=== PATIENT | female | born 1960 | race Caucasian/White ===

== ENCOUNTER → 2019-11-08 10:31 | Outpatient (CLI) | payer OTHER, SELFPAY ==
--- NOTE | ~2019-11-08 | MM_ITS ---
EXAMINATION: MM screening [facility] BI w link HISTORY: Screening mammogram TECHNIQUE: Craniocaudal and mediolateral oblique 3-D tomosynthesis images were obtained and synthetic 2-D images were generated. CAD analysis was submitted and interpreted. COMPARISON: 08/10/2018, 08/04/2017, 07/18/2016 BREAST PARENCHYMAL COMPOSITION: The breasts are heterogeneously dense, which may obscure small masses . FINDINGS: Scattered benign-appearing calcifications are present. A stable mass in the outer left [address] st is considered benign given the lack of interval change. Also seen is a stable asymmetry in the pos terior third of the outer right breast on the craniocaudal view. There is no evidence of suspicious m ass, calcification, or architectural distortion to suggest malignancy in either breast. There has bee n no suspicious interval change. IMPRESSION: 1. No mammographic evidence of malignancy. 2. Recommend routine screening mammography in one year. BI-RADS Category 2: Benign finding(s). Reviewed, dictated and finalized at location A.
== END ==
PROVIDERS: Visit Provider Obstetrics & Gynecology
DX: Z12.31 Encounter for screening mammogram for malignant neoplasm of breast (principal)
CPT/HCPCS: 77063; 77067

== ENCOUNTER → 2020-09-23 03:01 | Outpatient (CLI) | payer OTHER, SELFPAY ==
[2020-09-23 19:46] LABS: SARS-CoV-2 RNA PCR Negative
== END ==
PROVIDERS: PCP Family Medicine; Visit Provider Internal Medicine Gastroenterology
DX: Z01.812 Encounter for preprocedural laboratory examination (principal); Z20.822 Contact with and (suspected) exposure to COVID-19
CPT/HCPCS: C9803; U0003; U0005

== ENCOUNTER 2020-09-26 00:21 | Day surgery (SDC) | payer OTHER, SELFPAY ==
[2020-09-13 14:02] VITALS: BMI 32.0
[2020-09-26 07:45] VITALS: BP 143/83; PULSE 108; RESP 15; TEMP 37.1; O2SAT 98; BMI 31.8
[2020-09-26] MEDS: LACTATED RINGERS 1,000 ML 150 ML IV CONT (07:52)
--- NOTE | 2020-09-26 08:12 | P.PNAN_ITS ---
Anes - Initial Pre Proc Eval Procedure: Operation Date: 09/26/20 08:30 Proposed Procedures p Esophagogastroduodenoscopy And Screening Colonoscopy - Matteo Hebert MD Date/Time: 09/26/20 08:12 Surgeon: Matteo Dee MD Pre Op Diagnosis: neoplasm screening, GERD Patient Data Age: 59 Gender: F Height: 5 ft 3 in Weight: 81.5 kg Last Vital Signs Temp 98.7 F 09/26/20 07:45 Pulse 108 H 09/26/20 07:45 Resp 15 09/26/20 07:45 BP 143/83 H 09/26/20 07:45 Pulse Ox 98 09/26/20 07:45 Allergies Allergy/AdvReac Type Severity Reaction Status Date / Time codeine Allergy Mild Unknown Verified 09/26/20 07:44 methylprednisolone Allergy Mild Other Verified 09/26/20 07:44 Quinolones Allergy Mild Unknown Verified 09/26/20 07:44 erythromycin base Allergy Unknown Hives Verified 09/26/20 07:44 levofloxacin Allergy Unknown Unknown Verified 09/26/20 07:44 lisinopril Allergy Unknown Pruritic Verified 09/26/20 07:44 rash Sulfa (Sulfonamide Allergy Unknown Unknown Verified 09/26/20 07:44 Antibiotics) Home Medications Medication Instructions Recorded Confirmed Type ergocalciferol (vitamin D2) 1,250 50,000 unit PO .every other week 04/17/20 09/26/20 Rx mcg (50,000 unit) capsule #12 cap esomeprazole magnesium 20 mg 20 mg PO DAILY 08/07/20 09/26/20 History capsule,delayed release amlodipine 5 mg tablet 5 mg PO DAILY #90 tablet 09/14/20 09/26/20 Rx Patient hx anesthesia problems: none Family hx anesthesia problems: none PMFSH Past Medical History Medical History (Updated 10/18/19 @ 09:02 by Ana Varma, HEIDY) HLD (hyperlipidemia) Wellness examination Surgical History Surgical History (Updated 10/18/19 @ 09:29 by Ana Varma, HEIDY) S/P cervical spinal fusion Family History Family History Mother Family history of malignant neoplasm of ovary Patient's mother is Sibling Patient's sister is in good health Patient's brother is in good health Social History Social History (Updated 08/07/20 @ 08:39 by Sydni Hearn) Smoking status: Never smoker Second hand tobacco smoke exposure: No Alcohol intake: never Substance use: never Substance use type: does not use Living arrangements: with family Gender identity (if verbalized by the patient): Female Anes - Eval Final PreProcedure Day of Procedure 09/26/20 08:12 Patient weight: overweight Heart: regular rate and rhythm Lungs: clear to auscultation Airway: Mallampati scale class II Neurological: alert and oriented Last oral intake: >/= 8 hours ASA classification: II Emergent: no Anesthetic plan: proceed Anesthesia type and monitoring: general GIVS and standard monitoring Informed Consent: The patient's anesthetic plan and its attendant risks and benefits were discussed with the patient/family/POA. Questions were solicited and answers provided to the satisfaction of the patient/family/POA.
--- NOTE | 2020-09-26 08:18 | PM.HPGS ---
History of Present Illness History of Present Illness Consent: Risks, benefits, and alternatives have been discussed and questions answered. Patient agrees to proceed with procedure. Chief complaint: neoplasm screening, GERD Narrative: Rosita Bustamante is a 59 year old female with gerd on nexium for years but also using tums 2-3 times a week, last colonoscopy 10 years ago. Review of Systems Constitutional: Constitutional: Denies headache(s) and Denies weakness Eyes: Eyes: Denies blurry vision ENT: Reports Normal hearing present, Denies headache(s) and Denies neck pain Cardiovascular: Cardiovascular: Denies chest pain and Denies dyspnea Respiratory: Respiratory: Denies dyspnea Gastrointestinal: Gastrointestinal: Reports no additional gastrointestinal complaints Genitourinary: Genitourinary: Denies dysuria Musculoskeletal: Musculoskeletal: Denies neck pain Integumentary/Breasts: Skin/Breast: Denies dry skin Neurologic: Reports Normal hearing present, Denies headache(s) and Denies weakness Psychiatric: Psychiatric: Denies anxiety Endocrine: Endocrine: Denies change in body appearance Hematologic/Lymphatic: Hematologic/Lymphatic: Denies easy bleeding Allergic/Immunologic: Allergic/Immunologic: Denies urticaria PMFSH Past Medical History Medical History (Updated 09/26/20 @ 08:19 by Matteo Dee MD) Colon cancer screening HLD (hyperlipidemia) Wellness examination Surgical History Surgical History (Updated 10/18/19 @ 09:29 by Ana Varma, HEIDY) S/P cervical spinal fusion Family History Family History Mother Family history of malignant neoplasm of ovary Patient's mother is Sibling Patient's sister is in good health Patient's brother is in good health Social History Social History (Updated 08/07/20 @ 08:39 by Sydni Hearn) Smoking status: Never smoker Second hand tobacco smoke exposure: No Alcohol intake: never Substance use: never Substance use type: does not use Living arrangements: with family Gender identity (if verbalized by the patient): Female Meds Home Medications and Allergies Home Medications Medication Instructions Recorded Confirmed Type ergocalciferol (vitamin D2) 1,250 50,000 unit PO .every other week 12/21/20 06/01/21 Rx mcg (50,000 unit) capsule #12 cap esomeprazole magnesium 20 mg 20 mg PO DAILY 08/07/20 09/26/20 History capsule,delayed release amlodipine 5 mg tablet 5 mg PO DAILY #90 tablet 09/14/20 09/26/20 Rx Allergies Allergy/AdvReac Type Severity Reaction Status Date / Time codeine Allergy Mild Unknown Verified 09/26/20 07:44 methylprednisolone Allergy Mild Other Verified 09/26/20 07:44 Quinolones Allergy Mild Unknown Verified 09/26/20 07:44 erythromycin base Allergy Unknown Hives Verified 09/26/20 07:44 levofloxacin Allergy Unknown Unknown Verified 09/26/20 07:44 lisinopril Allergy Unknown Pruritic Verified 09/26/20 07:44 rash Sulfa (Sulfonamide Allergy Unknown Unknown Verified 09/26/20 07:44 Antibiotics) Vital Signs Vital Signs - 24 hr 09/26/20 07:45 Temperature 98.7 F Pulse Rate 108 H Respiratory Rate 15 Blood Pressure 143/83 H Pulse Oximetry 98 Exam Const: General: comfortable and no acute distress HENMT: General nose exam: Normal nares present Eyes: General: appearance normal, both eyes and all related structures Neck: Neck: no JVD Resp: Auscultation: clear to auscultation bilaterally Cardio: Rate: regular rate Rhythm: regular rhythm GI: Inspection: non-distended GI Palp: Yes Soft to palpation Skin: General skin exam: normal color Neuro: General: gait normal Speech: normal speech Extrem: General: normal to inspection Psych: Mental Status: mental status grossly normal Assessment and Plan Assessment and plan (1) Chronic GERD: Code(s): K21.9 - Gastro-esophageal refl
[2020-09-26] MEDS: BENZOCAINE (*SP) 60 ML SPRAY CAN (HURRICAINE) 1 SPRAY MUCOUS MEM (08:25)
[2020-09-26 08:53] VITALS: BP 83/47; PULSE 92; RESP 16; O2SAT 98
[2020-09-26 09:03] VITALS: BP 91/56; PULSE 91; RESP 18; O2SAT 98
[2020-09-26 09:13] VITALS: BP 92/60; PULSE 93; RESP 17; O2SAT 98
== END 2020-09-26 09:25 | disposition home or self-care (01) ==
PROVIDERS: PCP Family Medicine; Visit Provider Internal Medicine Gastroenterology
PROC: 0DJ08ZZ Inspection of Upper Intestinal Tract, Via Natural or Artificial Opening Endoscopic (ICD-10-PCS; CPT 43235; principal; 2020-09-26 08:30)
DX: Z12.11 Encounter for screening for malignant neoplasm of colon (principal); K64.8 Other hemorrhoids; K21.9 Gastro-esophageal reflux disease without esophagitis; E78.5 Hyperlipidemia, unspecified
CPT/HCPCS: 45378; 43239; 88305; C9803; J2704; J7120; U0003; U0005

== ENCOUNTER → 2020-11-24 12:13 | Outpatient (CLI) | payer OTHER, SELFPAY ==
--- NOTE | ~2020-11-24 | MM_ITS ---
EXAMINATION: MM screening [facility] BI w link HISTORY: Screening mammogram TECHNIQUE: Craniocaudal and mediolateral oblique 3-D tomosynthesis images were obtained and synthetic 2-D images were generated. CAD analysis was submitted and interpreted. COMPARISON: 11/08/2019, 08/08/2018, 08/14/2017 bilateral digital screening mammogram examinations 3 BREAST PARENCHYMAL COMPOSITION: The breasts are heterogeneously dense, which may obscure small masses . FINDINGS: Occasional benign calcifications. There is no evidence of suspicious mass, calcification, o r architectural distortion to suggest malignancy in either breast. There has been no suspicious inter lizzie change. IMPRESSION: 1. No mammographic evidence of malignancy. 2. Recommend routine screening mammography in one year. BI-RADS Category 2: Benign finding(s). Reviewed, dictated and finalized at location A.
== END ==
PROVIDERS: Visit Provider Obstetrics & Gynecology
DX: Z12.31 Encounter for screening mammogram for malignant neoplasm of breast (principal)
CPT/HCPCS: 77063; 77067

== ENCOUNTER → 2022-01-15 10:05 | Outpatient (CLI) | payer OTHER, SELFPAY ==
--- NOTE | ~2022-01-15 | MM_ITS ---
EXAMINATION: MM screening [facility] BI w link HISTORY: Screening mammogram TECHNIQUE: Craniocaudal and mediolateral oblique 3-D tomosynthesis images were obtained and synthetic 2-D images were generated. CAD analysis was submitted and interpreted. COMPARISON: 11/24/2020, 11/08/2019, 08/10/2018 BREAST PARENCHYMAL COMPOSITION: The breasts are heterogeneously dense, which may obscure small masses . FINDINGS: There is no suspicious mass, calcification, or architectural distortion to suggest malignan cy in either breast. There has been no suspicious interval change. IMPRESSION: 1. No mammographic evidence of malignancy. 2. Recommend routine screening mammography in one year. BI-RADS Category 1: Negative Reviewed, dictated and finalized at location A.
--- NOTE | ~2022-01-15 | DEXA_ITS ---
Bone Density Report Name: MIRI VARGAS Age: 61 Sex: Female Ethnicity: White Date of : 1960 Indication: postmenopausal; screening for osteoporosis; hysterectomy; Referring Provider: NOLAN FENG Study: Bone densitometry was performed. Exam Date: January 15, 2022 Accession number: [id number] Bone Density: Region BMD T-score Z-score Classification AP Spine (L1-L4) 1.234 1.7 3.2 Normal Femoral Neck (Left) 0.937 0.8 2.1 Normal Total Hip (Left) 1.028 0.7 1.7 Normal Femoral Neck (Right) 0.919 0.6 2.0 Normal Total Hip (Right) 1.028 0.7 1.7 Normal Total Hip Mean 1.028 0.7 1.7 Normal World Health Organization criteria for BMD impression classify patients as: Normal (T-score at or above -1.0), Osteopenia (T-score between -1.0 and -2.5), or Osteoporosis (T-score at or below -2.5). 10-year Fracture Risk: FRAX not reported because: All T-scores for Spine Total, Hip Total, Femoral Neck at or above -1.0 Previous Exams: Region Exam Age BMD T-score BMD Change BMD Change Date g/cm2 vs Baseline vs Previous AP Spine(L1-L4) 01/15/2022 61 1.234 1.7 -0.051* -0.051* 04/24/2011 50 1.285 2.2 Total Hip(Left) 01/15/2022 61 1.028 0.7 0.057* 0.057* 04/24/2011 50 0.971 0.2 Total Hip(Right) 01/15/2022 61 1.028 0.7 -0.005 -0.005 04/24/2011 50 1.033 0.7 *Denotes significance at 95% confidence level, LSC for AP Spine = 0.022 g/cm2, LSC for Total Hip = 0.027 g/cm2 Clinical Information Provided by Patient: Has used the following medications: Vitamin D Has the following medical conditions: Hysterectomy Patient maximum height was 63 Menopause Age: 46 Drinks caffeinated beverages Onset of menses at age 13 Number of children 2 Impression: The patient has normal bone mass. The BMD for the AP Spine(L1-L4) decreased, changing by -0.051 since the last DXA exam. Discussion: BONE DENSITY IS ABOVE THE MINIMUM DESIRABLE LEVEL AT ALL SKELETAL SITES TESTED. This patient?s bone mineral density is above the minimum desirable level (T-score -1.0 or better) at all sites measured. The patient should follow a healthful lifestyle (good nutrition with adequate calcium and vitamin D, and appropriate weight-bearing exercise). Follow-Up: Consider repeating this study in 3 to 4 years to reassess this patient's status, or sooner if there is some new clinical indication. Reported by: [facility] on
== END ==
PROVIDERS: PCP Family Medicine; Visit Provider Obstetrics & Gynecology
DX: Z12.31 Encounter for screening mammogram for malignant neoplasm of breast (principal); Z13.820 Encounter for screening for osteoporosis
CPT/HCPCS: 77063; 77067; 77080

== ENCOUNTER → 2023-02-24 13:29 | Outpatient (CLI) | payer OTHER, SELFPAY ==
--- NOTE | ~2023-02-24 | MM_ITS ---
EXAMINATION: MM screening [facility] BI w link HISTORY: Screening mammogram TECHNIQUE: Craniocaudal and mediolateral oblique 3-D tomosynthesis images were obtained and synthetic 2-D images were generated. CAD analysis was submitted and interpreted. COMPARISON: 01/15/2022, 11/24/2020, 11/08/2019 BREAST PARENCHYMAL COMPOSITION: The breasts are heterogeneously dense, which may obscure small masses . FINDINGS: No suspicious mass, calcification, or architectural distortion are identified in either mercedes ast to suggest malignancy. There has been no suspicious interval change. IMPRESSION: 1. No mammographic evidence of malignancy. 2. Recommend routine screening mammography in one year. BI-RADS Category 1: Negative Reviewed, dictated and finalized at location A.
== END ==
PROVIDERS: PCP Obstetrics & Gynecology; Visit Provider Obstetrics & Gynecology
DX: Z12.31 Encounter for screening mammogram for malignant neoplasm of breast (principal)
CPT/HCPCS: 77063; 77067

== ENCOUNTER 2024-02-27 07:09 | Outpatient (CLI) | payer OTHER, SELFPAY ==
--- NOTE | ~2024-02-27 | MM_ITS ---
EXAMINATION: MM screening [facility] BI w link HISTORY: Screening mammogram TECHNIQUE: Craniocaudal and mediolateral oblique 3-D tomosynthesis images were obtained and synthetic 2-D images were generated. CAD analysis was submitted and interpreted. COMPARISON: 02/24/2023, 01/15/2022, 11/24/2020, 11/08/2019 BREAST PARENCHYMAL COMPOSITION:Dense: The breasts are heterogeneously dense, which may obscure small masses. FINDINGS: No suspicious mass, calcification, or architectural distortion are identified in either mercedes ast to suggest malignancy. There has been no suspicious interval change. IMPRESSION: No mammographic evidence of malignancy. Recommend routine screening mammography in one year. BI-RADS Category 1: Negative Reviewed, dictated and finalized at location .
== END 2024-02-27 07:10 | disposition home or self-care (01) ==
PROVIDERS: PCP Family Medicine; Visit Provider Obstetrics & Gynecology
DX: Z12.31 Encounter for screening mammogram for malignant neoplasm of breast (principal)
CPT/HCPCS: 77063; 77067

== ENCOUNTER 2024-06-29 06:42 | Outpatient (CLI) | payer OTHER, SELFPAY | END 2024-06-29 06:43 | disposition home or self-care (01) | PROVIDERS: PCP Family Medicine; Visit Provider Family Medicine | DX: R79.89 Other specified abnormal findings of blood chemistry (principal) | CPT/HCPCS: 70553; A9579 ==

== ENCOUNTER 2024-07-05 10:15 | Outpatient (CLI) | payer OTHER, SELFPAY ==
--- NOTE | ~2024-07-05 | US_ITS ---
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 The parenchyma of the right kidney is unremarkable in echogenicity and thickness. No hydronephrosis or bulky renal calculi. LEFT KIDNEY: 9.6 x 4.9 x 5.8 cm No hydronephrosis or renal calculi. The parenchyma of the left kidney is unremarkable in echogenicity and thickness. BLADDER: Bladder is distended, and otherwise unremarkable. IMPRESSION: No hydronephrosis or renal calculi. No sonographic evidence to suggest the presence of medical renal disease. The bilateral adrenal glands are not visualized. Reviewed, dictated and finalized at location A.
== END 2024-07-05 10:16 | disposition home or self-care (01) ==
LOC: MICIMG 10:15
PROVIDERS: PCP Family Medicine; Visit Provider Family Medicine
DX: E27.8 Other specified disorders of adrenal gland (principal)
CPT/HCPCS: 76775

== ENCOUNTER 2024-07-21 09:39 | Outpatient (CLI) | payer OTHER, SELFPAY ==
--- NOTE | ~2024-07-21 | CT_ITS ---
EXAMINATION: CT abdomen w con DATE: 07/21/2024 10:11 INDICATION: Elevated cortisol and DHEA levels. TECHNIQUE: Computed tomography (CT) of the abdomen and pelvis was performed with 100 cc Omnipaque 350 intravenous contrast. The dose-length product was 281.39 mGy-cm. Automated exposure control and iter ative reconstruction technique were employed. COMPARISON: CT 07/04/2010 FINDINGS: there is dependent atelectasis. Heart size normal. No significant pleural or pericardial ef fusion. No significant vascular abnormality. No lymphadenopathy. Mild fatty infiltration of the liver . The spleen, pancreas, adrenal glands and kidneys are unremarkable. Nonobstructive bowel gas pattern . No acute osseous abnormality. Small 7 mm cyst of the liver.. IMPRESSION: 1. Unremarkable CT abdomen. Reviewed, dictated and finalized at location A. IMPRESSION: 1. Unremarkable CT abdomen.
[2024-07-21 10:02] LABS: Estimated Glomerular Filt Rate > 60
== END 2024-07-21 09:40 | disposition home or self-care (01) ==
PROVIDERS: PCP Family Medicine; Visit Provider Student in an Organized Health Care Education/Training Program
DX: R79.89 Other specified abnormal findings of blood chemistry (principal)
CPT/HCPCS: 74160; Q9967

== ENCOUNTER 2025-03-03 10:06 | Outpatient (CLI) | payer OTHER, SELFPAY ==
--- NOTE | ~2025-03-03 | MM_ITS ---
EXAMINATION: MM screening [facility] BI w link HISTORY: Screening TECHNIQUE: Craniocaudal and mediolateral oblique 3-D tomosynthesis images were obtained and synthetic 2-D images were generated. CAD analysis was submitted and interpreted. COMPARISON: Comparison to multiple prior studies sequentially, with oldest reviewed study dated , 11/08/2019 BREAST PARENCHYMAL COMPOSITION: The breasts are heterogeneously dense, which may obscure small masses. FINDINGS: There is no evidence of suspicious mass, calcification, or architectural distortion to suggest malignancy in either breast. IMPRESSION: 1. No mammographic evidence of malignancy. 2. Recommend routine screening mammography in one year. BI-RADS Category 1: Negative Reviewed, dictated and finalized at location B. ING MOLDER
== END 2025-03-03 10:07 | disposition home or self-care (01) ==
LOC: MICIMG 10:07
PROVIDERS: PCP Family Medicine; Visit Provider Obstetrics & Gynecology
DX: Z12.31 Encounter for screening mammogram for malignant neoplasm of breast (principal)
CPT/HCPCS: 77063; 77067